=== PATIENT | male | born 1970 | race Asian ===

== ENCOUNTER 2017-06-30 02:00 | Emergency (ER) | payer OTHER ==
[~2017-06-30] VITALS: Ht 177.8 cm; Wt 95.6 kg
[2017-06-30] MEDS ORDERED: ADENOSINE 6 MG/2 ML ONE (02:05)
[2017-06-30 02:27] LABS: ALBUMIN 4.3 g/dL (3.4-5.0); ANION GAP 9 mmol/L (5-15); CHLORIDE 108 mmol/L (98-107); CREATININE 0.85 mg/dL (0.7-1.3)
[2017-06-30 02:29] LABS: BASOPHILS # (AUTO) 0.03 x10^3/uL (0-0.1); BASOPHILS % (AUTO) 0 % (0-1); EOSINOPHILS # (AUTO) 0.09 x10^3/uL (0-0.4); EOSINOPHILS % (AUTO) 1 % (1-7); LYMPHOCYTES # (AUTO) 1.99 x10^3/uL (1-3.4); LYMPHOCYTES % (AUTO) 29 % (22-44); MD NO; MEAN CORPUSCULAR HEMOGLOBIN 32.4 pg (27.5-34.5); MEAN CORPUSCULAR HGB CONC 33.9 g/dL (33.2-36.2); MEAN CORPUSCULAR VOLUME 95.7 fL (81-97); MEAN PLATELET VOLUME 9.4 fL (7.4-10.4); MONOCYTES # (AUTO) 0.54 x10^3/uL (0.2-0.8); MONOCYTES % (AUTO) 8 % (2-9); NEUTROPHILS # (AUTO) 4.29 x10^3/uL (1.8-6.8); NEUTROPHILS % (AUTO) 62 % (42-75); PLATELET COUNT 228 x10^3/uL (130-400); RED BLOOD COUNT 5.15 x10^6/uL (4.38-5.82); RED CELL DISTRIBUTION WIDTH 13.7 % (9.4-14.8)
[2017-06-30] MEDS ORDERED: SODIUM CHLORIDE 0.9% 1,000ML IVBOLUS ONE (02:30)
[2017-06-30] MEDS ORDERED: LORazepam 1MG TABLET ONE (02:40)
[2017-06-30] MEDS ORDERED: ADENOSINE 6 MG/2 ML IVPush ONE (03:00)
[2017-06-30] MEDS ORDERED: LORazepam 1MG TABLET PO ONE (03:00)
[2017-06-30 03:57] VITALS: BP 146/105
[2017-06-30] MEDS ORDERED: OMNIPAQUE 350 MG/ML, 100ML BOTTLE ONE (06:08)
== END 2017-06-30 04:30 | disposition home or self-care (01) ==
LOC: ED 03:48
DX: I47.1 Supraventricular tachycardia (principal); R00.2 Palpitations; I10 Essential (primary) hypertension
CPT/HCPCS: 36415; 71275; 80048; 82040; 83735; 85025; 93005; 96374; 99291; J0153; J7030; Q9967